=== PATIENT | male | born 1995 | race Caucasian/White ===

== ENCOUNTER 2023-09-24 18:19 | Inpatient (IN) | payer OTHER ==
[2023-09-24 21:46] VITALS: BMI 26.0
[2023-09-25] MEDS ORDERED: MAGNESIUM HYDROX 2400MG/30ML ORAL SUSPENSION 30 ML CUP PO PRN (03:49)
[2023-09-25] MEDS ORDERED: guaiFENesin 600 MG TABLET.ER (FP) PO PRN (03:49)
[2023-09-25] MEDS ORDERED: NALOXONE HCL 0.4 MG/ML VIAL IM PRN (03:49)
[2023-09-25] MEDS ORDERED: MAG HYDROX/AL HYDROX/SIMETH 30 ML UNIT-DOSE CUP PO PRN (03:49)
[2023-09-25] MEDS ORDERED: BENZOCAINE/MENTHOL (CHLORASEPTIC ) LOZENGE MM PRN (03:49)
[2023-09-25] MEDS ORDERED: NICOTINE POLACRILEX 2 MG GUM BUC PRN (03:49)
[2023-09-25] MEDS ORDERED: IBUPROFEN 600 MG TABLET (FP) PO PRN (03:49)
[2023-09-25] MEDS ORDERED: NALOXONE HCL (KLOXXADO) 8 MG SPRAY NS PRN (03:49)
[2023-09-25] MEDS ORDERED: hydrOXYzine PAMOATE 25 MG CAPSULE (FP) PO PRN (03:49)
[2023-09-25] MEDS ORDERED: ONDANSETRON *ODT* 4 MG TABLET SL PRN (03:49)
[2023-09-25] MEDS ORDERED: IBUPROFEN 400 MG TABLET (FP) PO PRN (03:49)
[2023-09-25] MEDS ORDERED: BISMUTH SUBSALICYLATE 524 MG/30 ML PO PRN (03:49)
[2023-09-25] MEDS ORDERED: POLYETHYLENE GLYCOL (HEALTHYLAX) 3350 17 GM PACKET PO PRN (03:49)
[2023-09-25] MEDS ORDERED: LOPERAMIDE HCL 2 MG CAPSULE PO PRN (03:49)
[2023-09-25] MEDS ORDERED: ACETAMINOPHEN 325 MG TABLET (FP) PO PRN (03:49)
[2023-09-25] MEDS ORDERED: DICYCLOMINE HCL 10 MG CAPSULE PO PRN (03:49)
[2023-09-25] MEDS ORDERED: METHOCARBAMOL 500 MG TABLET PO PRN (03:49)
[2023-09-25] MEDS ORDERED: BENZONATATE 200 MG CAPSULE PO PRN (03:49)
[2023-09-25] MEDS: PRENATAL VITAMINS W/ FOLIC ACID TABLET (FP) PO SCH (11:00)
[2023-09-25] MEDS: NICOTINE 14 MG/24 HOURS TOPICAL PATCH TD SCH (11:00)
[2023-09-25] MEDS ORDERED: MELATONIN 5 MG TABLETS PO SCH (22:00)
[2023-09-25] MEDS: traZODone HCL 50 MG TABLET (FP) PO SCH (22:29)
[2023-09-25] MEDS: THIAMINE 100 MG TABLET PO SCH (22:29)
[2023-09-25] MEDS: QUEtiapine FUMARATE 100 MG TABLET (FP) PO SCH (22:30)
[2023-09-26] MEDS ORDERED: BUPRENORPHINE HCL 150 MCG, BUPRENORPHINE HCL 75 MCG BC PRN (10:39)
[2023-09-26] MEDS ORDERED: diazePAM 5 MG TABLET PO PRN (10:39)
[2023-09-26] MEDS: BUPRENORPHINE HCL 150 MCG, BUPRENORPHINE HCL 75 MCG BC ONE (10:58)
[2023-09-26 13:11] VITALS: RESP 17
[2023-09-26] MEDS ORDERED: cloNIDine HCL 0.1 MG TABLET PO PRN (14:39)
[2023-09-26 21:27] VITALS: BP 127/68; PULSE 65; TEMP 97.3
[2023-09-27] MEDS ORDERED: BUPRENORPHINE HCL 150 MCG, BUPRENORPHINE HCL 75 MCG BC PRN
[2023-09-27] MEDS ORDERED: BUPRENORPHINE HCL 150 MCG, BUPRENORPHINE HCL 75 MCG BC SCH (06:00)
[2023-09-28] MEDS ORDERED: BUPRENORPHINE HCL 450 MCG FILM BC SCH (06:00)
[2023-09-29] MEDS ORDERED: BUPRENORPHINE/NALOXONE 4 MG/1 MG FILM PACKET SL SCH (06:00)
[2023-09-30] MEDS ORDERED: BUPRENORPHINE/NALOXONE 8 MG/2 MG FILM PACKET SL ONE (06:00)
== END 2023-09-27 14:55 | disposition home or self-care (01) | DRG 773 ==
LOC: YASAS 18:19 → UNDOADMIN 09-25 05:22 → Y6N 09-25 05:22 → UNDODISIN 09-27 14:55
PROVIDERS: ADMIT Allergy & Immunology; ATTEND Psychiatry & Neurology Pain Medicine
PROC: HZ2ZZZZ Detoxification Services for Substance Abuse Treatment (ICD-10-PCS; principal; 2023-09-25)
DX: F11.20 Opioid dependence, uncomplicated (principal); F15.20 Other stimulant dependence, uncomplicated; F12.20 Cannabis dependence, uncomplicated; F17.210 Nicotine dependence, cigarettes, uncomplicated; F25.1 Schizoaffective disorder, depressive type; F19.282 Other psychoactive substance dependence with psychoactive substance-induced sleep disorder; F19.24 Other psychoactive substance dependence with psychoactive substance-induced mood disorder; F31.9 Bipolar disorder, unspecified; F43.10 Post-traumatic stress disorder, unspecified; Z28.310 Unvaccinated for COVID-19; Z28.9 Immunization not carried out for unspecified reason
CPT/HCPCS: 36415; 80305; 80307; 93005; 93010

== ENCOUNTER 2023-09-27 19:22 | Inpatient (IN) | payer OTHER ==
[2023-09-27 20:43] VITALS: BMI 25.7
[2023-09-27] MEDS ORDERED: IBUPROFEN 600 MG TABLET (FP) PO PRN (20:58)
[2023-09-27] MEDS ORDERED: hydrOXYzine PAMOATE 25 MG CAPSULE (FP) PO PRN (20:58)
[2023-09-27] MEDS ORDERED: BENZOCAINE/MENTHOL (CHLORASEPTIC ) LOZENGE MM PRN (20:58)
[2023-09-27] MEDS ORDERED: IBUPROFEN 400 MG TABLET (FP) PO PRN (20:58)
[2023-09-27] MEDS ORDERED: ACETAMINOPHEN 325 MG TABLET (FP) PO PRN (20:58)
[2023-09-27] MEDS ORDERED: BENZONATATE 200 MG CAPSULE PO PRN (20:58)
[2023-09-27] MEDS ORDERED: NALOXONE (NYS OPIOID OVERDOSE PROGRAM) 4 MG/0.1 ML SPRAY NS PRN (20:58)
[2023-09-27] MEDS ORDERED: MAG HYDROX/AL HYDROX/SIMETH 30 ML UNIT-DOSE CUP PO PRN (20:58)
[2023-09-27] MEDS ORDERED: POLYETHYLENE GLYCOL (HEALTHYLAX) 3350 17 GM PACKET PO PRN (20:58)
[2023-09-27] MEDS ORDERED: LOPERAMIDE HCL 2 MG CAPSULE PO PRN (20:58)
[2023-09-27] MEDS ORDERED: METHOCARBAMOL 500 MG TABLET PO PRN (20:58)
[2023-09-27] MEDS ORDERED: NALOXONE HCL 0.4 MG/ML VIAL IVPUSH PRN (20:58)
[2023-09-27] MEDS ORDERED: guaiFENesin 600 MG TABLET.ER (FP) PO PRN (20:58)
[2023-09-27] MEDS ORDERED: MAGNESIUM HYDROX 2400MG/30ML ORAL SUSPENSION 30 ML CUP PO PRN (20:58)
[2023-09-27] MEDS: QUEtiapine FUMARATE 100 MG TABLET (FP) PO ONE (22:43)
[2023-09-27] MEDS: THIAMINE 100 MG TABLET PO SCH (22:43)
[2023-09-27] MEDS: MELATONIN 5 MG TABLETS PO SCH (22:44)
[2023-09-28] MEDS: PRENATAL VITAMINS W/ FOLIC ACID TABLET (FP) PO SCH (10:46)
[2023-09-28] MEDS: QUEtiapine FUMARATE 50 MG TABLET PO SCH (10:52)
[2023-09-28] MEDS: traZODone HCL 50 MG TABLET (FP) PO SCH (21:28)
[2023-09-28] MEDS: QUEtiapine FUMARATE 100 MG TABLET (FP) PO SCH (21:29)
[2023-09-28] MEDS ORDERED: QUEtiapine FUMARATE 200 MG TABLET PO SCH (22:00)
[2023-09-30 11:30] LABS: POTASSIUM 4.2 mmol/L (3.5-5.1)
[2023-09-30 11:33] LABS: ALBUMIN 3.3 g/dl (3.4-5.0); BLOOD UREA NITROGEN 12.8 mg/dL (7-18); CALCIUM 9.1 mg/dL (8.5-10.1); MAGNESIUM 1.9 mg/dL (1.8-2.4)
[2023-09-30 11:36] LABS: CREATININE 0.9 mg/dL (0.55-1.3); HEMATOCRIT 42.6 % (35.4-49); HEMOGLOBIN 14.8 GM/dL (11.7-16.9); MCH 30.4 pg (25.7-33.7); MCHC 34.8 g/dl (32.0-35.9); MEAN CELL VOLUME 87.5 fl (80-96); MEAN PLT VOLUME 8.9 fl (7.5-11.1); PLATELET COUNT 233 10^3/uL (134-434); RBC 4.87 M/mm3 (4.00-5.60); RDW 13.7 % (11.9-15.9); WHITE BLOOD COUNT 5.4 K/mm3 (4.0-10.0)
[2023-09-30 11:38] LABS: BILIRUBIN,TOTAL 0.4 mg/dL (0.2-1); TOT PROT 6.8 g/dl (6.4-8.2)
[2023-10-05 06:50] VITALS: BP 154/87; PULSE 89; RESP 18; TEMP 97.3
== END 2023-10-05 09:35 | disposition home or self-care (01) | DRG 772 ==
LOC: YASAS 19:22 → Y3W 22:20
PROVIDERS: ADMIT Allergy & Immunology; ATTEND Psychiatry & Neurology Pain Medicine
PROC: HZ42ZZZ Group Counseling for Substance Abuse Treatment, Cognitive-Behavioral (ICD-10-PCS; principal; 2023-09-27)
DX: F11.20 Opioid dependence, uncomplicated (principal); F15.20 Other stimulant dependence, uncomplicated; F12.20 Cannabis dependence, uncomplicated; F17.210 Nicotine dependence, cigarettes, uncomplicated; F19.282 Other psychoactive substance dependence with psychoactive substance-induced sleep disorder; F19.24 Other psychoactive substance dependence with psychoactive substance-induced mood disorder; F25.1 Schizoaffective disorder, depressive type; F31.9 Bipolar disorder, unspecified; F43.10 Post-traumatic stress disorder, unspecified; F41.9 Anxiety disorder, unspecified
CPT/HCPCS: 36415; 80053; 80305; 82140; 82652; 83735; 85027; 86780

== ENCOUNTER 2023-12-29 08:25 | Emergency (ER) | payer OTHER ==
[2023-12-29 08:45] VITALS: BP 139/98; PULSE 92; RESP 16; TEMP 98.2; BMI 22.8
[2023-12-29] MEDS ORDERED: QUEtiapine FUMARATE 100 MG TABLET (FP) ONE (09:48)
[2023-12-29] MEDS: QUEtiapine FUMARATE 200 MG TABLET PO ONE (09:50)
== END 2023-12-29 10:03 | disposition short-term general hospital (02) ==
LOC: JER 08:25
DX: F10.10 Alcohol abuse, uncomplicated (principal); F15.10 Other stimulant abuse, uncomplicated
CPT/HCPCS: 99283-25